=== PATIENT | female | born 1995 | race Caucasian/White ===

== ENCOUNTER 2017-02-28 13:48 | Day surgery (SDC) | payer OTHER ==
[2017-02-28 14:25] LABS: #Lymphocytes 1.6 thou/uL (1.20-3.40); #Monocytes 0.9 thou/uL (0.11-0.59); #Neutrophils 12.8 thou/uL (1.40-6.50); %Basophils 0.3 % (0.0-1.0); %Eosinophils 0.2 % (0.0-10.0); %Lymphocytes 10.4 % (28.0-48.0); Hematocrit 43.8 % (36.0-47.0); Red Blood Cell (RBC) Count 4.78 mill/uL (4.00-5.20); White Blood Cell (WBC) Count 15.4 thou/uL (4.8-10.8)
[2017-02-28 14:50] LABS: ALT (SGPT) 10 U/L (8-55); AST (SGOT) 14 U/L (5-34); Alkaline Phosphatase 59 U/L (40-150); Anion Gap 15 mmol/L (10-20); BUN (Urea Nitrogen) 8 mg/dL (7.0-18.7); Bilirubin, Total 2.5 mg/dL (0.2-1.2); Calc. Creatinine Clearance 0 mL/min (70-130); Calcium 9.9 mg/dL (7.8-10.44); Carbon Dioxide 25 mmol/L (22-29); Chloride 102 mmol/L (98-107); Estimated GFR-MDRD 86; Globulin 3.7 g/dL (2.4-3.5); Protein, Total 8.1 g/dL (6.0-8.3)
[2017-02-28 15:12] LABS: Bilirubin Negative (Negative); Blood, Urine Negative (Negative); Glucose, Urine (Dipstick) Negative (Negative); Ketone, Urine 15 mg/dL (Negative); Nitrite Negative (Negative); Protein, Urine (Dipstick) Negative (Neg-Trace)
[2017-02-28] MEDS ORDERED: Ketorolac Tromethamine 30 MG/ML VIAL ONE (15:20)
[2017-02-28] MEDS ORDERED: Ertapenem 1 GM in Sodium Chloride 0.9% 100 ML IVPB SCH (16:15)
[2017-02-28] MEDS ORDERED: Ondansetron HCl/PF 4 MG/2 ML Vial ONE ×2 (16:15→17:50)
--- NOTE | 2017-02-28 16:30 | CT ---
CT ABDOMEN AND PELVIS WITHOUT IV CONTRAST: DATE: 02/28/17. HISTORY: Right lower quadrant abdominal pain that began last night. The patient has nausea and 1 episode of vomiting. FINDINGS: The appendix is dilated measuring up to 1.5 cm in diameter with periappendiceal inflammatory strandi ng seen suggesting appendicitis. No fluid collection is seen to suggest an abscess. A tiny amount of free fluid is seen in the pelvis. There is absence of the right kidney. No surgical clips are seen in the right renal fossa. However , there is an oval-shaped hypodense mass seen just anterior and medial to the right psoas muscles an d adjacent to the vertebral body at the junction of the lower abdomen and upper pelvis. This struct ure measures 6.2 cm x 3.7 cm x 1.7 cm in maximal dimensions. There is also a hypodense mass-like st ructure along the right iliac chain which measures 4.8 cm x 2.6 cm x 2.2 cm. These masses cannot be further evaluated without IV contrast but are probably related to enlarged lymph nodes or a conglom eration of enlarged lymph nodes. There is a small nodular density at the posteromedial right lung base in the region of the posterior costophrenic angle which may be related to minimal atelectasis. Lung bases are otherwise clear. The liver, spleen, pancreas, bilateral adrenal glands, left kidney, urinary bladder, and uterus demo nstrate a grossly normal nonenhanced CT appearance. The visualized most proximal opacified small bowel is normal in appearance. No dilated loops of bow el are seen. IMPRESSION: 1. Acute appendicitis. 2. Hypodense mass-like structures, one immediately anterior to the right psoas muscle and vertebral body on the right and the 2nd mass along the right iliac chain. These masses are probably related to enlarged lymph nodes but are unable to be further evaluated without IV contrast. 3. Tiny amount of free fluid in the pelvis. 4. Absence of the right kidney. Mass-like density seen anterior to the right psoas muscle and vert ebral body does not have typical appearance of a kidney. This is thought less likely to represent a n atrophic kidney given orientation and positioning. 5. The above findings were discussed with Dr. Shipman in the emergency department on 02/28/17 at 1558 hours. CODE CR POS: [facility]
[2017-02-28] MEDS ORDERED: Midazolam HCl 2 mg/2 ml Vial ONE (17:18)
[2017-02-28] MEDS ORDERED: Bupivacaine HCl 0.5%/Epinephrine 1:200,000/PF 30 ml Vial ONE (17:22)
[2017-02-28] MEDS ORDERED: Fentanyl 100 MCG/2 ML VIAL ONE ×3 (17:25→19:03)
[2017-02-28] MEDS ORDERED: Lidocaine 1% PF 5 ML VIAL ONE (17:50)
[2017-02-28] MEDS ORDERED: Succinylcholine Chloride 20 MG/ML 10 ml SYRINGE FS ONE (17:50)
[2017-02-28] MEDS ORDERED: Glycopyrrolate 0.2 MG/ML 5 ML SYRINGE ONE (17:50)
[2017-02-28] MEDS ORDERED: Propofol 200 MG/20 ML VIAL ONE (17:50)
[2017-02-28] MEDS ORDERED: Dexamethasone 20 MG/5 ML VIAL ONE (17:50)
[2017-02-28] MEDS ORDERED: Promethazine HCl 25 MG/ML VIAL SLOW IVP PRN (18:15)
[2017-02-28] MEDS ORDERED: Meperidine HCl/PF 25 MG/ML VIAL SLOW IVP PRN (18:15)
[2017-02-28] MEDS ORDERED: Morphine Sulfate 2 MG/ML SYRINGE SLOW IVP PRN (18:15)
[2017-02-28] MEDS ORDERED: HYDROmorphone 2 MG/ML VIAL SLOW IVP PRN (18:15)
--- NOTE | 2017-02-28 19:30 | HP ---
CHIEF COMPLAINT: Right lower quadrant pain. HISTORY OF PRESENT ILLNESS: This is a 21-year-old female who presents with pain in right lower quad rant, started this morning, described as sharp, does not radiate, not associated with dysuria, nause a, vomiting, fever or chills. No history of chronic abdominal pain or inflammatory bowel disease, n othing makes the pain better. CT scan reveals acute appendicitis. PAST MEDICAL HISTORY: Negative. PAST SURGICAL HISTORY: Negative. MEDICINES: None. ALLERGIES: No known drug allergies. SOCIAL HISTORY: No smoking, alcohol or other drugs. She is single and is a student. REVIEW OF SYSTEMS: Ten system review of systems is otherwise negative unless described above. PHYSICAL EXAMINATION: VITAL SIGNS: Afebrile. Vital signs are stable. HEENT: Sclerae are anicteric. Oropharynx is clear. NECK: No lymphadenopathy. CHEST: Clear. HEART: Regular rate and rhythm. ABDOMEN: Soft, tender right lower quadrant, localized guarding, no rebound, no abdominal hernias. EXTREMITIES: No ischemia or edema to extremities. LABORATORY: White cell count is 15, creatinine normal. ASSESSMENT: Acute appendicitis. PLAN: Laparoscopic appendectomy. Risks, benefits, alternatives discussed. We will do this today.
--- NOTE | 2017-03-04 08:19 | OP ---
PREOPERATIVE DIAGNOSIS: Acute appendicitis. POSTOPERATIVE DIAGNOSIS: Acute appendicitis. PROCEDURE: Laparoscopic appendectomy. SURGEON: Robel Davis M.D. ANESTHESIA: General. ESTIMATED BLOOD LOSS: Minimal. COMPLICATIONS: None. SPECIMEN: Appendix. FINDINGS: Appendicitis. TECHNIQUE: The patient was taken to the operating room and placed supine on the table. After gener al anesthetic was obtained, a Preston catheter was placed. The abdomen was prepped and draped in a st erile fashion. Curved incision was made below the umbilicus. Cautery was used to dissect down to a nd score the fascia. Abdominal cavity was entered bluntly using a Gracie clamp. Holding stitch of P DS was placed on each side of the fascia. Eugene trocar was placed. High-flow pneumoperitoneum was obtained. A suprapubic 5-mm port and a left lower quadrant 5-mm port were placed under direct visu alization. The cecum was rolled over to reveal acute appendicitis. A small window was made at the base of the appendix in the mesoappendix. Laparoscopic stapler was fired across the base of the deb endix. A reload was fired across the mesoappendix. There was no bleeding on the staple line. The appendix was placed in an Endo catch bag and brought out through the Eugene. The right lower quadra nt and pelvis was irrigated using sterile solution until returns were clear. All port sites were in filtrated using local anesthetic. All ports were removed under direct visualization without bleedin g. PDS was used to close the fascial defect below the umbilicus. All incisions were irrigated and closed using 4-0 Monocryl and Dermabond. The patient en route to recovery in stable condition. All instrument counts, needle counts, and lap counts were correct.
== END 2017-02-28 20:40 | disposition home or self-care (01) ==
LOC: ERS 13:48 → SDC 16:47
PROVIDERS: ATTEND Surgery
PROC: 0DTJ4ZZ Resection of Appendix, Percutaneous Endoscopic Approach (ICD-10-PCS; principal; 2017-02-28)
DX: K35.80 Unspecified acute appendicitis (principal)
CPT/HCPCS: 36415; 74176; 80053; 81003; 81025; 85025; 88304; 96374; 96375; J0131; J0670; J1100; J1335; J1885; J2001; J2250; J2270; J2405; J2704; J3010; J7050